=== PATIENT | female | born 1990 | race African-American/Black ===

== ENCOUNTER 2021-03-28 13:04 | Outpatient (REF) | payer MEDICAID, SELFPAY ==
--- NOTE | ~2021-03-28 | US_ITS ---
EXAMINATION: APPENDIX ULTRASOUND CLINICAL INFORMATION: Abdominal pain. Rule out appendicitis. COMPARISON: None TECHNIQUE: Grayscale and color imaging of the right lower quadrant using a linear and curved transducer FINDINGS: The appendix is not identified. No abnormal loops of bowel, ascites, adenopathy or mass is seen. The right ovary is normal-appearing. US/US appendix IMPRESSION: Appendix not seen by ultrasound.
== END 2021-03-28 13:05 | disposition home or self-care (01) ==
LOC: HO.HMGCX 13:04
PROVIDERS: Visit Provider Nurse Practitioner Family
DX: R10.31 Right lower quadrant pain (principal)
CPT/HCPCS: 76705